=== PATIENT | female | born 1995 | race Caucasian/White ===

== ENCOUNTER 2022-06-18 19:48 | Inpatient (IN) ==
[2022-06-18] MEDS ORDERED: OXYTOCIN/LR 20 UNIT/1,000 ML BAG IV ONE (20:10)
[2022-06-18] MEDS ORDERED: CARBOPROST TROMETHAMINE 250 MCG/ML AMP IM PRN (20:10)
[2022-06-18] MEDS ORDERED: MEPERIDINE 25 MG/1 ML VIAL IM PRN (20:10)
[2022-06-18] MEDS ORDERED: ONDANSETRON 4 MG/2 ML VIAL IV PRN (20:10)
[2022-06-18] MEDS ORDERED: miSOPROStoL 200 MCG TABLET RECTAL PRN (20:10)
[2022-06-18] MEDS ORDERED: METHYLERGONOVINE 0.2 MG/1 ML AMP IM PRN (20:10)
[2022-06-18] MEDS ORDERED: BUTORPHANOL 2 MG/ML VIAL IV PRN (20:10)
[2022-06-18] MEDS ORDERED: TRANEXAMIC ACID 1,000 MG in SODIUM CHLORIDE 0.9% 100 ML IV PRN (20:10)
[2022-06-18] MEDS: LACTATED RINGERS 1,000 ML IV SCH (20:17)
[2022-06-18] MEDS ORDERED: DINOPROSTONE 10 MG VAG.INSERT VAG ONE (20:47)
[2022-06-18 21:01] LABS: Basophils % 0.2 % (0.0-0.8); Eosinophils % 0.7 % (0.00-10.9); Hematocrit 50.9 VOL% (35.7-47.0); Hemoglobin 17.5 GM/DL (12.0-16.0); Immature Granulocytes % 0.7 %; Immature Granulocytes Absolute 0.03 #; Lymphocytes # 0.8 10*3/uL (1.4-4.0); Mean Corpuscular HGB Conc 34.4 GM/DL (32-36); Mean Corpuscular Volume 82.1 FL (87-102); Monocytes # 0.3 10*3/uL (0.11-0.8); Monocytes % 7.1 % (1.7-12.7); Neutrophils % 73.3 % (38.7-73.9); Platelet Count 127 T/CUMM (130-400); Red Cell Distribution Width 13.5 % (9.3-17.3); White Blood Count 4.38 T/CUMM (4-12)
[2022-06-18 21:12] LABS: Albumin 2.7 G/DL (3.4-5.0); Bilirubin,Total 0.4 MG/DL (0.20-1.00); Calcium 8.7 MG/DL (8.5-10.1); Osmolality,Calculated 277.4 MOS/KG (273-304); Potassium 3.9 MMOL/L (3.5-5.1); Total Protein 6.8 G/DL (6.4-8.2)
[2022-06-18 21:17] LABS: Bacteria,Urine Occasional /HPF (Few); Calcium Oxalate Crystals,Urine Occasional /HPF (Few); Mucus,Urine Moderate /LPF (Occasional); Squamous Epithelial Cell,Urine Occasional /HPF (0-10)
[2022-06-18 21:19] LABS: Bilirubin,Urine Negative (Negative); Blood, Urine Negative (Negative); Glucose,Urine (UA) Negative (Negative); Ketones,Urine Negative (Negative); Nitrite,Urine Negative (Negative); Protein,Urine Trace mg/dL (Negative); Urine Appearance Clear (Clear); Urine Color Yellow (Yellow); Urine Specific Gravity >= 1.030 (1.001-1.035); Urine Urobilinogen 0.2 eU/dL (<2.0); Urine pH 6.5 (4.5-8.0)
[2022-06-19 07:54] LABS: Basophils % 0.3 % (0.0-0.8); Eosinophils # 0.1 10*3/uL (0.0-0.87); Eosinophils % 0.5 % (0.00-10.9); Immature Granulocytes % 0.7 %; Immature Granulocytes Absolute 0.07 #; Lymphocytes # 1.8 10*3/uL (1.4-4.0); Mean Corpuscular HGB Conc 33.1 GM/DL (32-36); Mean Corpuscular Volume 84.3 FL (87-102); Mean Platelet Volume 11.8 FL (9.6-12.0); Monocytes # 0.8 10*3/uL (0.11-0.8); Monocytes % 7.4 % (1.7-12.7); Neutrophils % 73.1 % (38.7-73.9); Red Cell Distribution Width 13.4 % (9.3-17.3)
[2022-06-19 07:55] LABS: Hemoglobin 11.6 GM/DL (12.0-16.0); Red Blood Count 4.15 MC/CUMM (3.8-5.5); White Blood Count 10.22 T/CUMM (4-12)
[2022-06-19 07:56] LABS: Platelet Count 189 T/CUMM (130-400)
[2022-06-19] MEDS ORDERED: OXYTOCIN/LR 20 UNIT/1,000 ML BAG IV SCH (10:30)
[2022-06-19] MEDS ORDERED: MEPERIDINE 25 MG/1 ML VIAL IV PRN (10:37)
[2022-06-19] MEDS ORDERED: CITRIC ACID/SODIUM CITRATE 30 ML UDCUP PO ONE (11:03)
[2022-06-19] MEDS ORDERED: diphenhydrAMINE 50 MG/1 ML VIAL IV PRN ×2 (11:03)
[2022-06-19] MEDS ORDERED: hydrOXYzine HCL 25 MG/1 ML VIAL IM PRN (11:03)
[2022-06-19] MEDS ORDERED: FAMOTIDINE 20 MG/2 ML VIAL IV ONE (11:03)
[2022-06-19] MEDS ORDERED: PROMETHAZINE 25 MG/1 ML VIAL IM ONE (11:03)
[2022-06-19] MEDS ORDERED: NALOXONE 0.4 MG/ML VIAL IV PRN (11:03)
[2022-06-19] MEDS ORDERED: LACTATED RINGERS 1,000 ML IV ONE ×2 (11:03→18:29)
[2022-06-19] MEDS ORDERED: fentaNYL 2 MCG/ROPIV 0.2% EPID 100 ML EPIDURAL SCH (11:30)
[2022-06-19] MEDS: LACTATED RINGERS 1,000 ML IV SCH (13:07)
[2022-06-19] MEDS: ePHEDrine 50 MG/ML VIAL IV PRN ×2 (13:44→13:50)
[2022-06-19 14:15] LABS: Bilirubin,Urine Negative (Negative); Blood, Urine Small mg/dL (Negative); Glucose,Urine (UA) Negative (Negative); Ketones,Urine >160 mg/dL (Negative); Nitrite,Urine Negative (Negative); Protein,Urine Negative (Negative); Urine Appearance Clear (Clear); Urine Color Yellow (Yellow); Urine Specific Gravity 1.025 (1.001-1.035); Urine Urobilinogen 0.2 eU/dL (<2.0); Urine pH 6.5 (4.5-8.0)
[2022-06-19 14:17] LABS: Bacteria,Urine Occasional /HPF (Few); Mucus,Urine Occasional /LPF (Occasional); RBC,Urine 16 /HPF (0-4); Squamous Epithelial Cell,Urine Occasional /HPF (0-10)
[2022-06-19] MEDS ORDERED: ceFAZolin 3,000 MG in SYRINGE 1 EACH IV ONE (17:20)
[2022-06-19] MEDS ORDERED: miSOPROStoL 200 MCG TABLET ONE (17:31)
[2022-06-19] MEDS ORDERED: TRANEXAMIC ACID 1,000 MG/10 ML VIAL ONE (17:31)
[2022-06-19] MEDS ORDERED: METHYLERGONOVINE 0.2 MG/1 ML AMP ONE (17:32)
[2022-06-19] MEDS ORDERED: OXYTOCIN/LR 20 UNIT/1,000 ML BAG IV ONE ×2 (17:32→19:32)
[2022-06-19] MEDS ORDERED: SODIUM CHLORIDE 0.9% 0 ML IV ONE (17:32)
[2022-06-19] MEDS ORDERED: CARBOPROST TROMETHAMINE 250 MCG/ML AMP IM ONE (17:32)
[2022-06-19] MEDS ORDERED: METOCLOPRAMIDE 10 MG/2 ML VIAL ONE (18:29)
[2022-06-19] MEDS ORDERED: PHENYLEPHRINE 1 MG/10 ML SYRINGE IV ONE (18:29)
[2022-06-19] MEDS ORDERED: KETOROLAC 30 MG/1 ML VIAL ONE (18:29)
[2022-06-19] MEDS ORDERED: ONDANSETRON 4 MG/2 ML VIAL ONE (18:29)
[2022-06-19] MEDS ORDERED: buprenorphine HCL 0.3 MG/ML VIAL ONE ×2 (18:29)
[2022-06-19] MEDS ORDERED: LIDOCAINE MPF 2% /EPI 20 ML VIAL ONE (18:29)
[2022-06-19] MEDS ORDERED: DEXAMETHASONE 4 MG/1 ML VIAL ONE (18:29)
[2022-06-19 18:44] LABS: Cord Arterial Blood HCO3 13.7 MMOL/L
[2022-06-19 18:47] LABS: Cord Venous Blood PCO2 68.9 MMHG; Cord Venous Blood PO2 < 17
[2022-06-19] MEDS ORDERED: SIMETHICONE CHEW 80 MG TABLET PO PRN (19:32)
[2022-06-19] MEDS ORDERED: RHO(D) IMMUNE GLOBULIN 300 MCG SYRINGE IM ONE (19:32)
[2022-06-19] MEDS ORDERED: ACETAMINOPHEN 325 MG TABLET PO PRN (19:32)
[2022-06-19] MEDS ORDERED: ONDANSETRON 4 MG/2 ML VIAL IV PRN (19:32)
[2022-06-19] MEDS ORDERED: LACTATED RINGERS 1,000 ML IV SCH (20:00)
[2022-06-19] MEDS: ACETAMINOPHEN 500 MG TABLET PO SCH (22:28)
[2022-06-19] MEDS ORDERED: LABETALOL 200 MG TABLET PO SCH (22:30)
[2022-06-19] MEDS: DOCUSATE SODIUM 100 MG CAPSULE PO SCH (23:18)
[2022-06-20] MEDS: KETOROLAC 30 MG/1 ML VIAL IV SCH ×3 (01:22→16:27)
[2022-06-20 02:46] LABS: Basophils % 0.1 % (0.0-0.8); Hematocrit 32.2 VOL% (35.7-47.0); Hemoglobin 10.9 GM/DL (12.0-16.0); Immature Granulocytes Absolute 0.16 #; Lymphocytes # 0.6 10*3/uL (1.4-4.0); Lymphocytes % 3.8 % (21.3-54.2); Mean Corpuscular HGB Conc 33.9 GM/DL (32-36); Mean Corpuscular Volume 83.9 FL (87-102); Mean Platelet Volume 11.9 FL (9.6-12.0); Monocytes # 0.7 10*3/uL (0.11-0.8); Neutrophils % 91.1 % (38.7-73.9); Platelet Count 174 T/CUMM (130-400); Red Blood Count 3.84 MC/CUMM (3.8-5.5); Red Cell Distribution Width 13.4 % (9.3-17.3)
[2022-06-20 03:08] LABS: Band Neutrophils 4 % (0-10); Lymphocytes 3 % (20-55); Total Cells Counted 100
[2022-06-20 03:09] LABS: Microcytosis Slight
[2022-06-20] MEDS: ACETAMINOPHEN 500 MG TABLET PO SCH ×2 (04:37→16:26)
[2022-06-20] MEDS: MULTIVITAMIN (PRENATAL) TABLET PO SCH (09:31)
[2022-06-20] MEDS: DOCUSATE SODIUM 100 MG CAPSULE PO SCH ×2 (09:31→21:48)
[2022-06-20 10:51] LABS: Basophils % 0.1 % (0.0-0.8); Hematocrit 29.4 VOL% (35.7-47.0); Hemoglobin 9.9 GM/DL (12.0-16.0); Immature Granulocytes % 0.8 %; Immature Granulocytes Absolute 0.14 #; Lymphocytes # 1.3 10*3/uL (1.4-4.0); Lymphocytes % 7.9 % (21.3-54.2); Mean Corpuscular HGB Conc 33.7 GM/DL (32-36); Mean Platelet Volume 11.5 FL (9.6-12.0); Monocytes # 1.3 10*3/uL (0.11-0.8); Monocytes % 7.6 % (1.7-12.7); Neutrophils % 83.6 % (38.7-73.9); Platelet Count 176 T/CUMM (130-400); Red Cell Distribution Width 13.5 % (9.3-17.3); White Blood Count 16.94 T/CUMM (4-12)
[2022-06-20] MEDS: IBUPROFEN 800 MG TABLET PO PRN (16:52)
[2022-06-21] MEDS: IBUPROFEN 800 MG TABLET PO PRN ×3 (04:14→20:55)
[2022-06-21 05:48] LABS: Basophils % 0.3 % (0.0-0.8); Eosinophils # 0.1 10*3/uL (0.0-0.87); Eosinophils % 0.5 % (0.00-10.9); Hematocrit 29.1 VOL% (35.7-47.0); Hemoglobin 9.8 GM/DL (12.0-16.0); Immature Granulocytes % 0.8 %; Immature Granulocytes Absolute 0.09 #; Lymphocytes # 2.3 10*3/uL (1.4-4.0); Lymphocytes % 19.8 % (21.3-54.2); Mean Corpuscular HGB Conc 33.7 GM/DL (32-36); Mean Corpuscular Volume 85.6 FL (87-102); Mean Platelet Volume 11.3 FL (9.6-12.0); Monocytes # 1.1 10*3/uL (0.11-0.8); Monocytes % 9.3 % (1.7-12.7); Neutrophils % 69.3 % (38.7-73.9); Platelet Count 169 T/CUMM (130-400); Red Cell Distribution Width 13.9 % (9.3-17.3); White Blood Count 11.56 T/CUMM (4-12)
[2022-06-21] MEDS: DOCUSATE SODIUM 100 MG CAPSULE PO SCH ×2 (08:23→20:52)
[2022-06-21] MEDS: MULTIVITAMIN (PRENATAL) TABLET PO SCH (08:23)
[2022-06-21] MEDS: MAGNESIUM HYDROXIDE SUSP 30 ML UDCUP PO PRN (20:52)
[2022-06-22 08:03] VITALS: BP 122/61
[2022-06-22] MEDS: DOCUSATE SODIUM 100 MG CAPSULE PO SCH (08:40)
[2022-06-22] MEDS: MULTIVITAMIN (PRENATAL) TABLET PO SCH (08:40)
[2022-06-22] MEDS: IBUPROFEN 800 MG TABLET PO PRN ×2 (08:40→16:57)
[2022-06-22] MEDS: MAGNESIUM HYDROXIDE SUSP 30 ML UDCUP PO PRN (08:40)
== END 2022-06-22 18:30 | disposition home or self-care (01) | DRG 540 ==
LOC: N.LD 19:48 → N.LDOUT 19:48 → N.LD 19:52 → N.OB 06-19 22:51
PROVIDERS: ADMIT Obstetrics & Gynecology; ATTEND Obstetrics & Gynecology
PROC: LDCSECT (ICD-10-PCS; 2022-06-19 18:15)